=== PATIENT | female | born 1995 | race Caucasian/White ===

== ENCOUNTER → 2016-04-23 | Outpatient (CLI) | payer MEDICAID ==
[~2016-04-23] MED LIST: BACITRACIN15 G1 TP; BENADRYL-DPS25 MG PO; COLACE-DPS100 MG PO; MILK OF MAGNESI10 ML PO; MOTRIN-DPS800 MG PO; OXY IR DPS5 MG PO; PERCOCET 7.5 DP1 TAB PO; PRENATAL VIT1 TAB PO; PROVENTIL HFA6.7 GM IH; TYLENOL #3 DPS1 TAB PO; TYLENOL DPS325 MG PO; VALIUM-DPS5 MG PO; ZOFRAN4 M1 PO
== END | disposition home or self-care (01) ==
LOC: RAD.S 08-28 13:48
DX: M43.25 Fusion of spine, thoracolumbar region (principal)

== ENCOUNTER 2016-05-31 08:06 | Day surgery (SDC) | payer MEDICAID ==
[~2016-05-31] VITALS: Ht 175.3 cm; Wt 69.4 kg
--- NOTE | 2016-06-04 10:11 | OR ---
ADMIT: 05/31/2016 RM/LOC: [facility] MR#: [id number] [id number] KIRSTIE GONZALEZ [address] [place] [id number] Operative/Delivery Room Report SEX: F AGE: 20 : 1995 SURGERY DATE: 05/31/2016 SURGEON: Shar Faria MD PREOPERATIVE DIAGNOSIS: Prior L1 burst fracture with surgical fixation with hardware that is causing some pain one year out from healing with need for removal. POSTOPERATIVE DIAGNOSIS: Prior L1 burst fracture with surgical fixation with hardware that is causing some pain one year out from healing with need for removal. PROCEDURE: Removal of posterior hardware, thoracic 11, 12, lumbar 2 and 3 with removal of [employer] set screws and posterior rods with intraoperative use of fluoroscopy. HEAD CHOPPER: Elsa Monaco APRN. DESCRIPTION OF PROCEDURE: After gaining informed consent, the patient was taken to the operative theater, placed under general endotracheal anesthesia in a supine position and turned prone on a Ganga table. All pressure points were purposely padded prior to performing the procedure. She was prepped and draped in the usual sterile fashion. A time-out was utilized to ascertain the correct site and side of surgery as well as other pertinent patient historical information. Counts were obtained at the beginning and the end of the case with no change betwixt the two. Antibiotics were given within 1 hour of incision. Fluoroscope was brought into the field and the thoracic 11, thoracic 12, L2, and L3 screws and posterior hardware was noted. Incisions were reopened over top of the screw heads, then very cautiously monopolar electrocautery was taken down to the screw heads and the set screws were removed at thoracic 11, 12, lumbar 2, and 3 bilaterally. Once this was done, the grace grabber was able to be placed into the wound and the grcae was able to be cautiously removed with no sign of complication. At this point, all eight of the set screws had been removed. Two rods had been removed and then sequentially the eight screws that were left were able to be removed utilizing the screw tank truck driver and backing them out very cautiously. There was no sign of complication, hemorrhage, or any other issue. Once this was completed, pristine hemostasis was obtained. Attention was turned to closure. The thoracodorsal fascia was closed with simple interrupted 0 Vicryl. Simple, inverted, and interrupted 2-0 Vicryl was ADMIT: 05/31/2016 RM/LOC: [facility] MR#: [id number] [address] KIRSTIE GONZALEZ [facility] [address] [place] [address] Operative/Delivery Room Report SEX: F AGE: 20 : 1995 used in the hypodermic tissue and subcuticular 3-0 Stratafix with Steri-Strips was used on the skin. Ms. Monaco assisted with suction, retraction, and closure at the end of the case. COMPLICATIONS: None. ESTIMATED BLOOD LOSS: Charted. SPECIMEN: The removed hardware was sent for washing to be returned to the patient. Shar Faria MD/ misael JOB #: [id number] CC: Shar Faria MD, Attending Physician Luis Alberto Webb MD, Family Physician
== END 2016-05-31 14:30 | disposition home or self-care (01) ==
LOC: SSS 08:06
PROC: 0PP404Z Removal of Internal Fixation Device from Thoracic Vertebra, Open Approach (ICD-10-PCS; principal; 2016-05-31)
DX: G89.18 Other acute postprocedural pain (principal); M43.25 Fusion of spine, thoracolumbar region; F17.210 Nicotine dependence, cigarettes, uncomplicated; D64.9 Anemia, unspecified